=== PATIENT | male | born 1965 | race Two or more races ===

== ENCOUNTER 2019-02-22 08:30 | Outpatient (AMBR) | payer MEDICAID, SELFPAY ==
--- NOTE | 2019-02-15 09:54 | PT.OIERPT ---
PT OP Initial Eval Patient Information Pediatric or Adult Patient: Adult PT >13 Visit Reasons: Left shoulder pain Medical Diagnosis: m25.512 L shoulder pain Treatment Dx #1: L shouldel pain Start of Care: 02/15/19 Date of Onset: L shoulder pain Initial Assessment Subjective 53 y/o male who had L shoulder pain most probably due to work related injury. Patient has L rotator cuff tear based on the MRI. As per patient he had steroid shot on his L shoulder and that it only helps him for 2 weeks. He will see his MD again next month and they might consider Rotator cuff surgery on him. As of this time patient was sent to physical therapy for strengthening ex and pain management. Patient states he feels weak and cannot lift his arm overhead. He has pain. He takes tramadol or naproxen. He said Tramadol makes him a little dizzy. Objective PS 7/10 on L shoulder constant through out day PS 3/10 L shoulder AROM // PROM flexion 80 deg// 130deg Abduction 90deg // 110deg ER 40//50 IR 40//50 MMT shoulder 2/5 grossly graded (+) Drop arm test LUE (+) Lift off sign Assessment Patient has rotator cuff tear. Patient will need Physical therapy for strengthening ex on his L shoulder and manual therapy with ROM exercise and gentle passive stretching. Patient is apprehensive with surgery. This therapist explained to the patient, that this is a conservative approach. Patient was authorized by insurance 2tx sessions for exercise. Will request for more visits after the 2 sessions. Kinesiotaping were applied today to stimulate the suprapinatus and infraspinatus muscle. 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 Increase ms strength on L shoulder to 4/5 x 8 weeks 2. Decrease pain on the L shoulder to 2/10 x 8 weeks to be able to do his ADL's without difficulty. 3. Increase ROM to WFL x 8 weeks to be able to reach overhead without difficulty 4. I with HEP Treatment Plan Thera ex manual Tx HMP or cryotherapy HEP Frequency and Duration 2x/wk x 8 weeks Certification Dates: 02/15/2019 to 05/17/2019
--- NOTE | 2019-02-15 11:15 | PT.ODAYNRPT ---
PT Outpatient Daily Note Date of Service: February 15, 2019 OP Daily Note Pediatric or Adult Patient: Adult PT >13 Visit Reasons: Left shoulder pain Outpatient Physical Therapy Treatment Date: 02/15/19 Subjective: no Office Procedures PT Procedures PT Date of Service: 02/15/19 OP PT Eval Mod Complex 30 minutes: Yes
--- NOTE | 2019-02-22 09:13 | PT.ODAYNRPT ---
PT Outpatient Daily Note Date of Service: February 22, 2019 OP Daily Note Pediatric or Adult Patient: Adult PT >13 Visit Reasons: Left shoulder pain Outpatient Physical Therapy Treatment Date: 02/22/19 Subjective: No new complaints. Objective: pls see FS Assessment: 1st tx visit today. Patient has PS 5/10. Patient is motivated to participate in therapy. Patient were given HMP prior to therapy session and cold pack post tx. Patient were given light exercise today. Unable to do full ROM. Skin check after therapy and no redness noted. Plan: To continue POC toward goals. Pain Present Currently: Yes Length of Time (minutes) of Treatment: 30 Minutes Office Procedures PT Procedures PT Date of Service: 02/15/19 OP PT Eval Mod Complex 30 minutes: Yes
== END 2019-02-27 23:59 | disposition home or self-care (01) ==
PROVIDERS: PCP Physician Assistant; Referring Provider Physician Assistant; Visit Provider Physical Medicine & Rehabilitation Pain Medicine
DX: M25.562 Pain in left knee (principal)
CPT/HCPCS: 97110; 97162

== ENCOUNTER 2019-06-25 09:30 | Outpatient (AMBR) | payer MEDICAID, SELFPAY ==
--- NOTE | 2019-06-18 12:02 | PT.ODAYNRPT ---
PT Outpatient Daily Note Date of Service: June 18, 2019 OP Daily Note Pediatric or Adult Patient: Adult PT >13 Visit Reasons: right shoulder Outpatient Physical Therapy Treatment Date: 06/18/19 Subjective: Pain on the L shoulder. He also mentioned that he has R shoulder pain. He had steroid shot on his shoulders 3 weeks ago. Objective: Pls see FS Assessment: Patient were given strengthening ex on L UE> Gentle passive stretching on his L shoulder towards flexion, abd, IR and ER. Patient has pain on the end range of movement. Plan: To continue POC toward goals. Pain Present Currently: Yes Length of Time (minutes) of Treatment: 30 Minutes
--- NOTE | 2019-06-25 11:19 | PT.ODAYNRPT ---
PT Outpatient Daily Note Date of Service: June 25, 2019 OP Daily Note Pediatric or Adult Patient: Adult PT >13 Visit Reasons: right shoulder Outpatient Physical Therapy Treatment Date: 06/25/19 Subjective: Pain on his shoulder. Objective: Pls see FS Assessment: Patient has pain on his supraspinatus insertion. And pain on his IR. Reciprocal inhibition done with stretching towards L shoulder flexion. US done today on the supraspinatus area and Cold pack applied post therapy. Patient were given HEP to be done at home. Patient were able to do return demonstration by 100% accuracy. Plan: To continue POC toward goals. Pain Present Currently: Yes Length of Time (minutes) of Treatment: 30 Minutes Office Procedures PT Procedures PT Date of Service: 06/18/19 Therapeutic Exercise 30 minutes: Yes
== END 2019-06-28 23:59 | disposition home or self-care (01) ==
PROVIDERS: PCP Physician Assistant; Referring Provider Physician Assistant; Visit Provider Physical Medicine & Rehabilitation Pain Medicine
DX: M25.512 Pain in left shoulder (principal)
CPT/HCPCS: 97110

== ENCOUNTER 2024-10-11 11:04 | Outpatient (RCR) | payer MEDICAID, SELFPAY ==
--- NOTE | 2024-10-11 11:36 | PTNOTE_ITS ---
PT OP Initial Eval Patient Information Outpatient Physical Therapy Treatment Date: 10/11/24 Visit Reasons: Shoulder pain Medical Diagnosis: M75.100 Start of Care: 10/11/24 Date of Onset: 6 yrs ago R 1 yr ago L shoulder Smoking Status Smoking Status: Never smoker Initial Assessment Subjective: Pt is 59 yr male with long Hx of R shoulder pain and more recently the L shoulder started hurting x1 yr. 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 PMH: none reported Imaging: MRI reveals 2.5 cm supraspinatus tear L shoulder Pt goal: to get rid of the pain Objective: L shoulder AROM: FF: 90 deg Abd: 90 deg ER: 75 deg HBB: to L glute with pain Mayers Juanjose: positive Drop arm: positive Assessment: Pt presents with decresaed ROM, strength and positive special testing consistent with MRI that shows 2.5 cm RC tear. Pt not likely going to benefit from skilled therapy to meet goals and has poor rehab potential. He will likely have more pain with therapy interventions. 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
== END 2024-10-28 23:59 | disposition home or self-care (01) ==
LOC: CPTX 11:04
PROVIDERS: PCP Specialist; Referring Provider Specialist; Visit Provider Specialist
DX: M25.512 Pain in left shoulder (principal); M75.102 Unspecified rotator cuff tear or rupture of left shoulder, not specified as traumatic
CPT/HCPCS: 97162

== ENCOUNTER 2025-01-17 21:39 | Emergency (ER) | payer MEDICAID, SELFPAY ==
[2025-01-17 21:40] VITALS: BMI 25.8
[2025-01-17 21:52] VITALS: BP 138/71; PULSE 78; RESP 18; TEMP 37.3; O2SAT 95
--- NOTE | 2025-01-17 21:59 | XR_ITS ---
Examination: CT abdomen with intravenous contrast CT pelvis with intravenous contrast 2-D coronal reconstructions 2-D sagittal reconstructions Date and time of exam: January 17, 2025, 10:30 p.m., comparison December 23, 2018 INDICATIONS: Left lower abdominal pain beginning 3 days ago. CTDI: vol (mGy) 707 DLP: (mGycm) 435 Technique: Multiple axial sections of the abdomen and pelvis have been obtained. 64 slice high-resolution scanner used. 3 mm axial sections have been obtained, post intravenous injection 60 cc [id number] 2-D sagittal, coronal reconstructions obtained. Low dose protocols were performed. One or more of the following dose reduction techniques were used; automated exposure control, adjustment of the mA and/or KV according to patient size, use of iterative reconstruction technique. Findings: No focal liver or splenic lesions No gallstones No pancreatic mass No renal or ureteral calculi, no hydronephrosis Inflammatory changes surrounding bowel in the upper abdomen which in this case appears to be small bowel for instance axial image 106 There is diverticulosis Prostate calcifications Moderate prostatomegaly Contracted urinary bladder IMPRESSION: Marked inflammation surrounding bowel which appears to be small bowel in the left abdomen Differential would include enteritis such as Crohn's disease, ischemic small bowel, clinical correlation advised Recommend surgical consultation
--- NOTE | 2025-01-17 22:00 | EDNOTE_ITS ---
ED Abdominal Pain RME/HPI General Chief Complaint: Abdominal Pain Stated complaint: L SIDED ABD PAIN Time seen by provider: 01/17/25 21:59 Arrival date/time: 01/17/25 21:39 59M with history of diverticulitis presents to ED with several days of worsening LLQ pain and fevers/chills. Patient denies dysuria and N/V. Limitations: no limitations Related Data Previous Rx's ?Medication ?Instructions ?Recorded diphenhydramine HCl 25 mg capsule 50 mg (2 x 25 mg) PO Q6H allergic 09/28/20 reaction #30 caps amoxicillin 875 mg-potassium 1 tab PO BID 7 days #14 t abs 01/17/25 clavulanate 125 mg tablet hydrocodone 5 mg-acetaminophen 325 1 tab PO BID PRN pa in #10 tabs 01/17/25 mg tablet ondansetron 4 mg disintegrating 4 mg PO Q8H PRN nausea and 01/17/25 tablet vomiting #14 tabs Allergies Allergy/AdvReac Type Severity Reaction Status Date / Time No Known Allergies Allergy Verified 01/17/25 21:43 Review of Systems Review of Systems Systems Reviewed: All systems reviewed, normal except as documented Constitutional Constitutional: Reports as per HPI, Reports chills and Reports fever(s) Gastrointestinal Gastrointestinal: Reports as per HPI and Reports abdominal pain Past Medical History Past Medical History CARDIAC: Negative Cardiac Disorders or Congestive Heart Failure RESPIRATORY: Negative Chronic Obstructive Pulmonary Disease (COPD) or Asthma GENITOURINARY: Negative Renal Disease ENDOCRINE: Negative Diabetes Mellitus Type 1 or Diabetes Mellitus Type 2 HEMATOLOGIC: Negative Sickle Cell Disease Social History SMOKING STATUS: Never smoker SUBSTANCE USE: does not use ED Exam General Limitations: Present no limitations General appearance: Present alert and in no apparent distress Head Head exam: Present atraumatic Neck Neck exam: Present normal inspection, full ROM and trachea midline Chest Chest inspection: Present normal inspection and symmetric chest wall rise Abdominal Exam Abdominal exam: Present soft Abdominal tenderness: Present LLQ Neurological Exam Neurological exam: Present alert and oriented X3 Psychiatric Psychiatric exam: Present normal affect and normal mood Skin Skin exam: Present warm, dry, intact and normal color Course Quality Measures none Orders Category Date Time Status CT Screening NOW Care 01/17/25 21:59 Completed Insert IV NOW Care 01/17/25 21:59 Completed Consult to General Surgery Stat Cons 01/17/25 23:[address] abdomen pelvis w con Stat Exams 01/17/25 21:59 Completed CBC Stat Lab 01/17/25 22:17 Completed CMP [Comprehensive Metabolic Panel] Stat Lab 01/17/25 22:17 Completed Drug Screen,Urine Stat Lab 01/17/25 22:56 Completed Lactate (Lactic Acid) Stat Lab 01/17/25 22:17 Completed Lipase Stat Lab 01/17/25 22:17 Completed Procalcitonin Stat Lab 01/17/25 22:17 Completed Urinalysis, C/S if Indicated Stat Lab 01/17/25 22:56 Completed Ampicillin/Sulbac Inj [Unasyn Inj] 3 gm Med 01/17/25 23:36 Discontinued Sodium Chloride 0.9% (Pop) [NS 0.9% mini bag] 100 ml IV X1 Morphine* Inj Med 01/17/25 23:34 Discontinued 4 mg IV X1 ONE Ondansetron Inj [Zofran Inj] Med 01/17/25 23:34 Discontinued 4 mg IVP X1 ONE Vital Signs Vital signs: Vital Signs Temperature 99.2 F 01/17/25 21:52 Pulse Rate 78 01/17/25 21:52 Respiratory Rate 18 01/17/25 21:52 Blood Pressure 138/71 H 01/17/25 21:52 Pulse Oximetry (%) 95 01/17/25 21:52 Oxygen Delivery Method Room Air 01/17/25 21:52 O2 at 95% on RA and WNLs Abdominal Pain MDM MDM Narrative MDM Narrative:: 59M with history of diverticulitis presents to ED with several days of worsening LLQ pain and fevers/chills. Patient denies dysuria and N/V. Physical exam reveals LLQ tenderness. Patient is afebrile, calm, and alert. CT reveals enteritis with possible ischemic bowel vs IBD. Less likely the latter given lactate is normal. Also no bloody diarrhea so unlikely IBD. Moderate leukocytosis, but all other labs including procal and CMP are unremarkable. UA clean. Spoke to Dr. Dhaliwal, gen surgeon, who thinks likely viral infection and no need for any surgical intervention. She already agrees possibly no admission given patient has not asked for pain meds, has no fever or N/V. In addition, spoke to patient, who also does not want to be admitted. Meds and auto travel counselor given. Patient data External records reviewed:: [facility] previous records Clinical information provided by:: patient Social determinants that could affect healthcare access:: none Patient has the following chronic illnesses:: none How is presenting disease/condition affected by chronic disease/condition?: no chronic disease Evaluation data The following diagnostics were reviewed and interpreted by me:: lab results and radiology exam(s) Lab and/or radiology exams considered but not ordered:: ordered Interpretation Summary: above Medications / Prescriptions Medications or Prescriptions considered but not ordered:: ordered Medication administrations:: Medication Administration History Discontinued Medications Ampicillin Sodium/Sulbactam (Sodium 3 gm/ Sodium Chloride) 100 mls @ 200 mls/hr IV X1 ONE Stop: 01/17/25 23:37 Last Infusion: 01/18/25 00:49 Dose: Infused Documented By: Admin: 01/17/25 23:46 Dose: 200 mls/hr Documented By: TRANG Morphine Sulfate (Morphine Sulf Inj 4 Mg/Ml Vial) 4 mg IV X1 ONE Stop: 01/17/25 23:35 Last Admin: 01/17/25 23:46 Dose: 4 mg Documented By: TRANG Ondansetron HCl (Ondansetron Inj 2 Mg/Ml Inj 2 Ml) 4 mg IVP X1 ONE; Protocol Stop: 01/17/25 23:35 Last Admin: 01/17/25 23:46 Dose: 4 mg Documented By: TRANG above Consultations Consultation(s) initiated? (list below): Yes Diagnosis Differential diagnosis abdominal pain: abdominal pain, acute appendicitis, calculus of kidney, constipation, diverticulitis, gastroenteritis, pancreatitis and small bowel obstruction Most likely diagnosis given after review of the tests above:: enteritis Admission Indicated Admission indicated?: not indicated Admission Request Was there a request for admission?: No Disposition Plan Disposition Plan: Discharge Discharge Attestation Discharge Attestation: The patient and all family members were given an opportunity to ask questions and understood the discharge instructions. Discharge instructions specifically effects, indications for sooner follow up or return to the emergency department, and the expected course of current diagnosis. Patient condition: Stable Discharge Plan Plan Patient Disposition: HOME (Self Care) Discharge Disposition comment: Stable Prescriptions/Referrals Prescriptions/Med Rec: New ondansetron 4 mg tablet,disintegrating 4 mg PO Q8H PRN (Reason: nausea and vomiting) Qty: 14 0RF amoxicillin-pot clavulanate 875-125 mg tablet 1 tab PO BID 7 Days Qty: 14 0RF hydrocodone-acetaminophen 5-325 mg tablet 1 tab PO BID MDD 2 PRN (Reason: pain) Qty: 10 0RF No Action diphenhydramine HCl 25 mg capsule 50 mg PO Q6H Qty: 30 0RF Rx Instructions: Use diphenhydramine for 3 days as directed and stop. If rash recurs restart and reconsult your doctor Referrals: Fred Gamble MD [Primary Care Provider, Family Practice] - In 1 week Problem List Clinical Impression: Enteritis Patient/Caregiver Discharge Instructions Education Materials: Abdominal Pain Additional Instructions: Please follow-up with PCP within 24-48 hours and return immediately if symptoms worsen. Keep hydrated. Advance diet as tolerated. Print Language: Hungarian Stand Alone Forms: Work/School Release, Patient Portal Info Letter PA/COMBAT SYSTEMS OPERATOR Supervising Physician MARISOL/DIONNE Supervising Physician: Dr. Moreno
[2025-01-17 22:38] LABS: Lactate (Lactic Acid) 0.8 mMol/L (0.4-2.0)
[2025-01-17 22:44] LABS: Basophils # (Auto) 0.1 Thou/mm3 (0.0-0.2); Basophils % (Auto) 0 % (0-2.5); Eosinophils # (Auto) 0.2 Thou/mm3 (0.0-0.5); Eosinophils % (Auto) 2 % (0-10); Hematocrit 41.0 % (41.0-53.0); Hemoglobin 13.8 g/dL (13.5-16.0); Immature Granulocytes Auto 0.06 Thou/mm3 (0.00-0.00); Lymphocytes # (Auto) 1.1 Thou/mm3 (1.0-4.8); Lymphocytes % (Auto) 7 % (10-50); Mean Corpuscular HGB Conc 33.7 g/dl (31.0-37.0); Mean Corpuscular Hemoglobin 31.1 pg (25.0-35.0); Mean Corpuscular Volume 92 fL (80-100); Monocytes # (Auto) 1.1 Thou/mm3 (0.0-0.8); Monocytes % (Auto) 7 % (0-12); Neutrophils # (Auto) 13.7 Thou/mm3 (1.8-7.7); Neutrophils % (Auto) 84 % (37-80); Nucleated Red Blood Cell # 0.00 Thou/mm3 (0.00-0.00); Nucleated Red Blood Cell % 0 /100 WBC (0); Platelet Count 276 Thou/mm3 (140-440); RDW Standard Deviation 45.9 fL (35.1-43.9); Red Blood Count 4.44 Miln/mm3 (4.50-5.90); White Blood Count 16.3 Thou/mm3 (3.8-10.6)
[2025-01-17 23:07] LABS: Alanine Aminotransferase 18 U/L (10-49); Albumin, Serum 4.3 gm/dL (3.5-5.0); Albumin/Globulin Ratio 2.0 (1.2-2.2); Alkaline Phosphatase 89 U/L (46-116); Anion Gap 9 (7-16); Aspartate Amino Transferase 11 U/L (0-34); BUN/Creatinine Ratio 19 Ratio (12-20); Bilirubin,Total 0.5 mg/dL (0.3-1.2); Blood Urea Nitrogen 17 mg/dL (9-23); Calcium 9.7 mg/dL (8.3-10.6); Calcium (Corrected) 9.7 mg/dL (8.5-10.1); Carbon Dioxide 24.5 mMol/L (20.0-31.0); Chloride 109 mMol/L (98-107); Creatinine (Component) 0.9 mg/dL (0.6-1.3); Estimated Creatinine Clearance 85.5 mL/min (>60); Globulin 2.1 gm/dL (2.3-3.5); Glucose 135 mg/dL (74-106); Lipase 37 U/L (12-53); Osmolality,Calculated 286 (275-295); Potassium 3.6 mMol/L (3.4-5.1); Procalcitonin 0.17 ng/ml (0.0-0.49); Sodium 142 mMol/L (136-145); Total Protein 6.4 gm/dL (5.7-8.2); eGFR > 60 See Note
[2025-01-17 23:28] LABS: Amphetamine/Methamp Scrn,U Negative (Negative); Barbiturate Screen,Urine Negative (Negative); Benzodiazepines Screen,Urine Negative (Negative); Benzoylecgonine Screen, Ur Negative (Negative); Fentanyl Screen,Urine Negative (Negative); Opiate Screen,Urine Negative (Negative); THC Screen,Urine Negative (Negative)
[2025-01-17 23:31] LABS: Collection Type, Urine Clean Catch
[2025-01-17 23:42] LABS: Bilirubin,Urine Negative (Negative); Blood,Urine Negative (Negative); Clarity,Urine Clear (Clear/Hazy); Color,Urine Yellow (Lt Yel-Yel); Culture Indicated,Urine Not Indicated; Glucose, Urine Negative (Negative); Ketones,Urine Negative (Negative); Leukocyte Esterase,Urine Negative (Negative); Nitrite,Urine Negative (Negative); PH,Urine 6.5 (5.0-7.0); Protein,Urine Trace (Neg - Trace); RBC,Urine 2 /hpf (0-3); Squamous Epithelial Cell,Urine < 1 /hpf (0-5); Urobilinogen,Urine Negative mg/dL (0.0-1.0); WBC,Urine 1 /hpf (0-5)
[2025-01-17] MEDS: MORPHINE SULF INJ 4 MG/ML VIAL IV (23:46)
[2025-01-17] MEDS: AMPICILLIN/SULBAC INJ 3 GM in SODIUM CHLORIDE 0.9% (POP) 100 ML IV (23:46)
[2025-01-17] MEDS: ONDANSETRON INJ 2 MG/ML INJ 2 ML 4 MG IVP (23:46)
[2025-01-17 23:51] LABS: Specific Gravity,Urine 1.020 (1.001-1.035)
[2025-01-18 00:49] VITALS: BP 147/87; PULSE 71; RESP 16; TEMP 37.4; O2SAT 97
== END 2025-01-18 00:50 | disposition home or self-care (01) ==
PROVIDERS: Physician Assistant; Emergency Provider Emergency Medicine; PCP Family Medicine
DX: K52.9 Noninfective gastroenteritis and colitis, unspecified (principal)
CPT/HCPCS: 36415; 74177; 80053; 80307; 81001; 83605; 83690; 84145; 85025; 96365; 96375; 99283; A4649; J0295; J2270; J2405; J3490; Q9967

== ENCOUNTER 2025-01-19 10:24 | Emergency (ER) | payer MEDICAID, SELFPAY ==
[2025-01-19 10:33] VITALS: BP 151/89; PULSE 72; RESP 17; TEMP 36.6; O2SAT 95; BMI 26.0
[2025-01-19 13:04] VITALS: BP 135/79; PULSE 66; RESP 18; TEMP 36.9; O2SAT 96
--- NOTE | 2025-01-19 13:05 | EKG_ITS ---
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
--- NOTE | 2025-01-19 13:17 | PD.EDABDPN ---
ED Abdominal Pain RME/HPI General Chief Complaint: Abdominal Pain Stated complaint: Left side abdominal pain X 1 week Time seen by provider: 01/19/25 10:38 Arrival date/time: 01/19/25 10:24 Limitations: no limitations RME / HPI RME / HPI narrative: DR. KALINA VELARDE ED EVALUATION: 59-year-old male presents to the Emergency Department with complaint of left lower quadrant abdominal pain since Tuesday. He has a history of diverticulitis. He was evaluated here on for the same issue and reports that his pain has not improved. He is accompanied by his girlfriend. He is currently taking ibuprofen for a torn right shoulder ligament. He reports a subjective intermittent fever yesterday. Last bowel movement was this morning, hard and normal in color. No known allergies. No surgeries to abdomen. No dysuria or hematuria. No drugs,alc,smoking Related Data Previous Rx's ?Medication ?Instructions ?Recorded diphenhydramine HCl 25 mg capsule 50 mg (2 x 25 mg) PO Q6H allergic 09/28/20 reaction #30 caps amoxicillin 875 mg-potassium 1 tab PO BID 7 days #14 tabs 01/17/25 clavulanate 125 mg tablet hydrocodone 5 mg-acetaminophen 325 1 tab PO BID PRN pain #10 tabs 01/17/25 mg tablet ondansetron 4 mg disintegrating 4 mg PO Q8H PRN nausea and 01/17/25 tablet vomiting #14 tabs dicyclomine 10 mg capsule 10 mg PO BID PRN abdominal pain 01/19/25 #10 caps Allergies Allergy/AdvReac Type Severity Reaction Status Date / Time No Known Allergies Allergy Verified 01/19/25 10:30 Review of Systems Review of Systems Systems Reviewed: All systems reviewed, normal except as documented Past Medical History Social History SMOKING STATUS: Never smoker SUBSTANCE USE: does not use ALCOHOL: Never Past Medical History Comments PMH COMMENT: He has a history of diverticulitis. He is currently taking ibuprofen for a torn right shoulder ligament. No known allergies. ED Exam General Limitations: Present no limitations General appearance: Present alert and in no apparent distress Head Head exam: Present atraumatic, normocephalic and normal inspection Eye Eye exam: Present normal appearance, PERRL and EOMI ENT ENT exam: Present normal exam, normal oropharynx and mucous membranes moist Neck Neck exam: Present normal inspection, full ROM and trachea midline Chest Chest inspection: Present normal inspection and symmetric chest wall rise Respiratory Respiratory exam: Present normal lung sounds bilaterally Cardiovascular Cardiovascular exam: Present regular rate, normal rhythm and normal heart sounds Abdominal Exam Abdominal exam: Present soft and tenderness (left lower quadrant tenderness); Absent distention Extremities Exam Extremities exam: Present normal inspection and full ROM Neurological Exam Neurological exam: Present alert, oriented X3 and other (no FND) Psychiatric Psychiatric exam: Present normal affect and normal mood Skin Skin exam: Present warm, dry, intact and normal color Course Quality Measures none Orders Category Date Time Status EKG (ED ONLY) *Do not use* NOW Care 01/19/25 13:06 Completed EKG (ED Only) Stat Exams 01/19/25 13:05 Draft KUB [XR abdomen 1V] Stat Exams 01/19/25 14:43 Completed Blood Culture (Lab) Stat Lab 01/19/25 13:25 Received CBC Stat Lab 01/19/25 13:10 Completed CMP [Comprehensive Metabolic Panel] Stat Lab 01/19/25 13:10 Completed Lactic Acid [Lactate (Lactic Acid)] Stat Lab 01/19/25 13:10 Completed Lipase Stat Lab 01/19/25 13:10 Completed Troponin I Stat Lab 01/19/25 13:10 Completed UA, C/S IF [Urinalysis, C/S if Indicated] Stat Lab 01/19/25 13:25 Completed VBG [Venous Blood Gas] Stat Lab 01/19/25 13:10 Completed Morphine* Inj Med 01/19/25 13:17 Discontinued 2 mg IVP STAT STA Vital Signs Vital signs: Vital Signs Temperature 97.8 F 01/19/25 10:33 Pulse Rate 72 01/19/25 10:33 Respiratory Rate 17 01/19/25 10:33 Blood Pressure 151/89 H 01/19/25 10:33 Pulse Oximetry (%) 95 01/19/25 10:33 Oxygen Delivery Method Room Air 01/19/25 10:33 Abdominal Pain MDM MDM Narrative MDM Narrative:: I, Tricia Torre am scribing for and in the presence of Dr. Yost. 59-year-old male with persistent left lower quadrant abdominal pain and history of diverticulitis. Pain not improving since prior visit. Exam shows LLQ tenderness. Workup initiated for recurrent diverticulitis versus other abdominal pathology. Differential diagnoses include diverticulitis, constipation, and colitis. Given patient just recently had a CT scan and symptoms are unchanged, will not order repeat CT scan. Ordered labs and will consult our on-call surgeon. Labs without leukocytosis, current white blood cell count 10, previously was 16. Hemoglobin is 13 this is the patient's baseline. Patient does not have a left shift. Normal platelets. VBG pH 7.4, lactic acid normal. Urinalysis without evidence of infection. EKG performed today at 1339 notable for sinus rhythm, normal intervals nonspecific T wave changes, not a cardiac alert. 2:44p discussed case with on-call surgeon Dr. Tinoco, given reassuring workup, in comparison to initial presentation, does not recommend any emergent surgical intervention. Recommends patient follow-up with his primary care doctor, pain control and return precautions. KUB showed mild ileus however no evidence of air under the diaphragm, perforation obstruction or any other acute pathology. Patient is having bowel movements, not obstructed. My interpretation: EKG performed at 1339 hours, sinus rhythm, rate 60, normal intervals, non specific ST-T wave changes, not a cardiac alert On multiple reevaluations patient hemodynamically stable not distressed will discharge home close return precautions follow-up with his primary care doctor as well as recommendation that he discontinue ibuprofen as this may be contributing to his symptoms, eat a bland diet, and follow-up with wildlife removal specialist as he may benefit from a colonoscopy and further evaluation. Close return precautions provided. Patient data External records reviewed:: [facility] previous records Clinical information provided by:: patient and spouse Social determinants that could affect healthcare access:: none Patient has the following chronic illnesses:: He has a history of diverticulitis. He is currently taking ibuprofen for a torn right shoulder ligament. No known allergies. How is presenting disease/condition affected by chronic disease/condition?: exacerbated by Evaluation data The following diagnostics were reviewed and interpreted by me:: lab results and EKG tracing(s) (My interpretation: EKG performed at 1339 hours, sinus rhythm, rate 60, normal intervals, non specific ST-T wave changes, not a cardiac alert) Lab and/or radiology exams considered but not ordered:: none Interpretation Summary: See MDM narrative above. RADIOLOGY Procedure(s): XR abdomen 1V Accession Number(s): [id number] cc: Troy Wang MD; Indira Schafer; Oliva Yost MD~ Examination: Abdomen AP single view Technique: AP portable supine abdomen, single view Exam date and time: January 19, 2025, 1442 hours INDICATIONS: Left side abdominal pain beginning 1 week ago FINDINGS: Moderate stool throughout the colon Mild small bowel ileus No free air. No renal or ureteral calculi IMPRESSION: Mild small bowel ileus Dictated By: Troy Wang MD Medications / Prescriptions Medications or Prescriptions considered but not ordered:: none Medication administrations:: Medication Administration History Discontinued Medications Morphine Sulfate (Morphine Sulf Inj 4 Mg/Ml Vial) 2 mg IVP STAT STA Stop: 01/19/25 13:18 Last Admin: 01/19/25 13:21 Dose: 2 mg Documented By: VL see above Consultations Consultation(s) initiated? (list below): Yes Consultation #1 (Physician, Specialty, Details): see mdm Diagnosis Differential diagnosis abdominal pain: other (diverticulitis, constipation, and colitis.) Most likely diagnosis given after review of the tests above:: abdominal pain Admission Indicated Admission indicated?: not indicated Admission Request Was there a request for admission?: No Disposition Plan Disposition Plan: Discharge Discharge Attestation Discharge Attestation: The patient and all family members were given an opportunity to ask questions and understood the discharge instructions. Discharge instructions specifically effects, indications for sooner follow up or return to the emergency department, and the expected course of current diagnosis. Patient condition: Stable Discharge Plan Plan Patient Disposition: HOME (Self Care) Prescriptions/Referrals Prescriptions/Med Rec: New dicyclomine 10 mg capsule 10 mg PO BID PRN (Reason: abdominal pain) Qty: 10 0RF No Action diphenhydramine HCl 25 mg capsule 50 mg PO Q6H Qty: 30 0RF Rx Instructions: Use diphenhydramine for 3 days as directed and stop. If rash recurs restart and reconsult your doctor ondansetron 4 mg tablet,disintegrating 4 mg PO Q8H PRN (Reason: nausea and vomiting) Qty: 14 0RF amoxicillin-pot clavulanate 875-125 mg tablet 1 tab PO BID 7 Days Qty: 14 0RF hydrocodone-acetaminophen 5-325 mg tablet 1 tab PO BID MDD 2 PRN (Reason: pain) Qty: 10 0RF Referrals: Indira Schafer FNP [Primary Care Provider] - In 1 week Problem List Clinical Impression: Abdominal pain Patient/Caregiver Discharge Instructions Education Materials: Abdominal Pain Additional Instructions: Your labs today have significantly improved from prior, and are now normal. I discussed the results of your CT scan from the as well as your workup done and your labs today with our on-call surgeon Dr. Tinoco. Does not identify any emergent surgical intervention this required at this time. Recommends that you follow-up with your primary care doctor. I recommend that you eat a bland diet, hydrate well, you can take Tylenol for pain at home. If you have persistent symptoms I also recommend that you establish care with a wildlife removal specialist as you may benefit from colonoscopy Print Language: Mexican Stand Alone Forms: Diana Award Info., Patient Portal Info Letter
[2025-01-19] MEDS: MORPHINE SULF INJ 4 MG/ML VIAL 2 MG IVP (13:21)
[2025-01-19 13:31] LABS: Lactate (Lactic Acid) 0.8 mMol/L (0.4-2.0)
[2025-01-19 13:34] LABS: Basophils # (Auto) 0.1 Thou/mm3 (0.0-0.2); Basophils % (Auto) 1 % (0-2.5); Eosinophils # (Auto) 0.2 Thou/mm3 (0.0-0.5); Eosinophils % (Auto) 2 % (0-10); Hematocrit 39.8 % (41.0-53.0); Hemoglobin 13.1 g/dL (13.5-16.0); Immature Granulocytes Auto 0.04 Thou/mm3 (0.00-0.00); Lymphocytes # (Auto) 1.5 Thou/mm3 (1.0-4.8); Lymphocytes % (Auto) 14 % (10-50); Mean Corpuscular HGB Conc 32.9 g/dl (31.0-37.0); Mean Corpuscular Hemoglobin 30.5 pg (25.0-35.0); Mean Corpuscular Volume 93 fL (80-100); Monocytes # (Auto) 0.8 Thou/mm3 (0.0-0.8); Monocytes % (Auto) 8 % (0-12); Neutrophils # (Auto) 7.8 Thou/mm3 (1.8-7.7); Neutrophils % (Auto) 75 % (37-80); Nucleated Red Blood Cell # 0.00 Thou/mm3 (0.00-0.00); Nucleated Red Blood Cell % 0 /100 WBC (0); Platelet Count 287 Thou/mm3 (140-440); RDW Standard Deviation 46.2 fL (35.1-43.9); Red Blood Count 4.29 Miln/mm3 (4.50-5.90); White Blood Count 10.4 Thou/mm3 (3.8-10.6)
[2025-01-19 13:43] LABS: Base Excess, Venous 2 (-3-3); O2 Saturation, Venous 79 % (96-97); PCO2, Venous 40 mmHg (36-56); PO2, Venous 43 mmHg (15-58); pH, Venous 7.43 (7.33-7.66)
[2025-01-19 13:44] LABS: Collection Type, Urine Clean Catch
[2025-01-19 13:56] LABS: Bilirubin,Urine Negative (Negative); Blood,Urine Negative (Negative); Clarity,Urine Clear (Clear/Hazy); Color,Urine Lt-Yellow (Lt Yel-Yel); Culture Indicated,Urine Not Indicated; Glucose, Urine Negative (Negative); Ketones,Urine Negative (Negative); Leukocyte Esterase,Urine Negative (Negative); Nitrite,Urine Negative (Negative); PH,Urine 7.0 (5.0-7.0); Protein,Urine Negative (Neg - Trace); RBC,Urine 2 /hpf (0-3); Specific Gravity,Urine 1.020 (1.001-1.035); Squamous Epithelial Cell,Urine 3 /hpf (0-5); Urobilinogen,Urine 2.0 mg/dL (0.0-1.0); WBC,Urine 1 /hpf (0-5)
--- NOTE | 2025-01-19 14:43 | XR_ITS ---
Examination: Abdomen AP single view Technique: AP portable supine abdomen, single view Exam date and time: January 19, 2025, 1442 hours INDICATIONS: Left side abdominal pain beginning 1 week ago FINDINGS: Moderate stool throughout the colon Mild small bowel ileus No free air. No renal or ureteral calculi IMPRESSION: Mild small bowel ileus
[2025-01-19 14:52] LABS: Alanine Aminotransferase 12 U/L (10-49); Albumin, Serum 4.2 gm/dL (3.5-5.0); Albumin/Globulin Ratio 1.8 (1.2-2.2); Alkaline Phosphatase 71 U/L (46-116); Anion Gap 8 (7-16); Aspartate Amino Transferase < 8 U/L (0-34); BUN/Creatinine Ratio 17 Ratio (12-20); Bilirubin,Total 0.4 mg/dL (0.3-1.2); Blood Urea Nitrogen 15 mg/dL (9-23); Calcium 9.3 mg/dL (8.3-10.6); Calcium (Corrected) 9.3 mg/dL (8.5-10.1); Carbon Dioxide 27.8 mMol/L (20.0-31.0); Chloride 105 mMol/L (98-107); Creatinine (Component) 0.9 mg/dL (0.6-1.3); Estimated Creatinine Clearance 85.5 mL/min (>60); Globulin 2.3 gm/dL (2.3-3.5); Glucose 97 mg/dL (74-106); Lipase 38 U/L (12-53); Osmolality,Calculated 282 (275-295); Potassium 3.9 mMol/L (3.4-5.1); Sodium 141 mMol/L (136-145); Total Protein 6.5 gm/dL (5.7-8.2); Troponin I < 0.002 ng/mL (0.0-0.045); eGFR > 60 See Note
[2025-01-19 17:33] VITALS: BP 128/77; PULSE 69; RESP 16; TEMP 36.8; O2SAT 97
== END 2025-01-19 17:36 | disposition home or self-care (01) ==
PROVIDERS: Emergency Provider Emergency Medicine; PCP Nurse Practitioner Family
DX: K56.7 Ileus, unspecified (principal)
CPT/HCPCS: 36415; 74018; 80053; 81001; 82803; 83605; 83690; 84484; 85025; 87040; 93005; 96374; 99284; J2270